=== PATIENT | female | born 1950 | race Caucasian/White ===

== ENCOUNTER 2016-04-14 15:09 | Outpatient (RCR) | payer OTHER ==
[2016-03-05 10:33] LABS: BLOOD UREA NITROGEN 9 MG/DL (7-18); BUN/CREATININE RATIO 10; CREATININE SERUM 0.89 MG/DL (0.60-1.30); GFR ESTIMATED > 60
== END 2016-05-27 | disposition home or self-care (01) ==
LOC: ONC 15:09
PROVIDERS: ATTEND Radiology Radiation Oncology
DX: Z51.0 Encounter for antineoplastic radiation therapy (principal); D44.4 Neoplasm of uncertain behavior of craniopharyngeal duct
CPT/HCPCS: 36415; 77300; 77301; 77332; 77334; 77336; 77338; 77386; 82565; 84520; 99214

== ENCOUNTER 2016-05-28 09:51 | Outpatient (RCR) | payer OTHER ==
--- OUTSIDE RECORDS SUMMARY | 2016-05-28 09:53 | XMS REPORT | Continuity of Care Document ---
Author Author [facility] Organization [facility] Address Unknown Phone Unavailable Care Team Providers Care Rail Transportation Tabeler Name Role Phone SEBASTIAN MCDONALD DO PCP Insurance Providers Payer Name Policy Number Subscriber Name Relationship Health Link [id number] Greg Elam 19 Self / Same As Patient Problems No problem information available. Medications No medication information available. Social History Social History Problem Response Recorded Date/Time Recent Foreign Travel No 02/27/2016 8:15am Hospital Discharge Instructions No hospital discharge instructions. Plan of Care Prescriptions See Medication Section Functional Status No functional status results. Allergies, Adverse Reactions, Alerts No allergy information available. Immunizations No immunization records. Vital Signs No known vital signs results. Results Laboratory Results Test Name Result Units Flags Reference Collection Date/Time Result Date/ Time Comments Blood Urea Nitrogen 9 MG/DL 7-18 03/05/2016 10:00am 03/05/2016 10:33am Creatinine 0.89 MG/DL 0.60-1.30 03/05/2016 10:00am 03/05/2016 10:33am BUN/Creatinine Ratio 03/05/2016 10:00am 03/05/2016 10:33am Estimat Glomerular Filtration Rate > 60 03/05/2016 10:00am 2015 10:33am GFR INTERPRETIVE DATA UNITS FOR ESTIMATED GFR (eGFR): mL/min/1.73 M2 REFERENCE RANGE FOR ESTIMATED GFR (eGFR) eGFR NORMAL eGFR >60 MODERATELY DECREASED eGFR 30-59 SEVERLY DECREASED eGFR 15-29 KIDNEY FAILURE <15 (OR DIALYSIS) Procedures No known history of procedures. Encounters Encounter Location Arrival/Admit Date Discharge/Depart Date Attending Provider Discharged Recurring [facility] 04/14/16 3:09pm 11:59pm RANDAL MCFARLANE MD
== END 2016-08-26 | disposition home or self-care (01) ==
LOC: ONC 09:51
PROVIDERS: ATTEND Radiology Radiation Oncology
DX: D44.4 Neoplasm of uncertain behavior of craniopharyngeal duct (principal)
CPT/HCPCS: 99213